=== PATIENT | male | born 1950 | race Caucasian/White ===

== ENCOUNTER 2024-09-08 09:26 | Observation (INO) ==
[~2024-09-08 09:26] MED LIST: Metoclopramide 5 MG/ML VIAL (10 mg) IV PRN; NS 0.45% 1000 ml BAG 1,000 ML IV SCH; Naloxone 0.4 mg VIAL 0.4 mg/ml 1 ml VIAL IV PRN; Ondansetron 4 mg VIAL 2 MG/ML 2 ml VIAL IV PRN; fentaNYL 100 mcg/2 ml 50 MCG/ML VIAL IV PRN
[2024-09-08] MEDS: Scopolamine 1 mg/72hr PATCH TRANSDERM ONE (09:54)
[2024-09-08] MEDS ORDERED: ceFAZolin 2 GM PREMIX 2 GM/50 ML BAG ONE (09:57)
[2024-09-08] MEDS ORDERED: Tranexamic Acid 1 GM/100ML BAG 2,000 MG/200 ML BAG IV ONE (09:57)
[2024-09-08] MEDS: Buffered Lidocaine 1% SYRIN 1 ml INTRADERM ONE (10:23)
[2024-09-08] MEDS: Lactated Ringers 1000 ml BAG 1,000 ML IV SCH ×2 (10:24→18:44)
[2024-09-08 10:32] LABS: Rapid COVID-19 Molecular Undetected (Undetected)
[2024-09-08] MEDS ORDERED: ROPIVACAINE 5 MG/ML 30 ML BTL (0.5%) ONE ×2 (12:22→12:36)
[2024-09-08] MEDS ORDERED: Dexamethasone IV 4 MG/ML VIAL 1 ml VIAL ONE (12:36)
[2024-09-08] MEDS ORDERED: fentaNYL 100 mcg/2 ml 50 MCG/ML VIAL ONE (12:36)
[2024-09-08] MEDS ORDERED: Ondansetron 4 mg VIAL 2 MG/ML 2 ml VIAL IV PRN (13:04)
[2024-09-08] MEDS ORDERED: Ondansetron ODT 4 mg TAB 4 MG TAB PO PRN (13:04)
[2024-09-08] MEDS ORDERED: Morphine 2 MG/ML SYRINGE IV PRN (13:04)
[2024-09-08] MEDS ORDERED: Magnesium Hydroxide LIQ 30 ML UDC PO PRN (13:04)
[2024-09-08] MEDS ORDERED: Lactulose 30 ml UDC PO PRN (13:04)
[2024-09-08] MEDS ORDERED: Calcium Carb (TUMS) 500 mg CHEW TAB PO PRN (13:04)
[2024-09-08] MEDS ORDERED: Propofol 10 MG/ML 20 ML BTL ONE (15:07)
[2024-09-08] MEDS: Acetaminophen IV 1 GM/100ML 1,000 MG/100 ML BAG IV ONE (18:43)
[2024-09-08] MEDS: ceFAZolin 2 GM PREMIX 2 GM/50 ML BAG IV SCH ×2 (18:44→21:23)
[2024-09-08] MEDS: Magnesium Hydroxide LIQ 30 ML UDC PO SCH (20:48)
[2024-09-09 05:33] LABS: Hematocrit 45.1 % (38-53); Hemoglobin 15.6 g/dL (13.2-16.3); Mean Platelet Volume 7.3 fL (7.5-11.2); Platelet Count 243 10^3/uL (150-450)
[2024-09-09 05:49] LABS: Calcium 9.3 mg/dL (8.6-10.3); Creatinine, Serum 0.75 mg/dL (0.67-1.17); Potassium 4.4 mmol/L (3.5-5.0); eGFR CKD-EPI 93.5 (>60)
[2024-09-09] MEDS: Vitamin THERAPEUTIC TAB PO SCH (08:23)
[2024-09-09 10:00] VITALS: BP 114/73
== END 2024-09-09 15:20 | disposition home or self-care (01) ==
LOC: OR 09:26 → SSU 09:26
PROVIDERS: ADMIT Orthopaedic Surgery Adult Reconstructive Orthopaedic Surgery; ATTEND Orthopaedic Surgery Adult Reconstructive Orthopaedic Surgery